=== PATIENT | male | born 1995 | race Caucasian/White ===

== ENCOUNTER → 2021-02-28 | Outpatient (CLI) | payer OTHER ==
[~2021-02-28] MED LIST: BACTRIM DS TAB1 EACH PO; CIPRO500 MG PO; GEODON60 MG PO; KEFLEX500 MG PO; NORCO 5-325 TA1 EACH PO; PROZAC20 MG PO; VYVANSE30 MG PO; ZOFRAN ODT4 MG PO
== END ==
LOC: LAB 11:35
PROVIDERS: ATTEND Nurse Practitioner
DX: U07.1 COVID-19 (principal)